=== PATIENT | female | born 1965 | race Caucasian/White ===

== ENCOUNTER 2017-11-12 09:59 | Outpatient (CLI) | payer BC, SELFPAY ==
--- NOTE | 2017-11-12 10:28 | DI.RAD_ITS ---
SYMPTOM/DIAGNOSIS: RT HEEL PAIN, M79.671 RIGHT HEEL: Two views. There is a small spur at the plantar surface of the calcaneus. The bone is intact and normally mineralized. The soft tissues are unremarkable. IMPRESSION: Small calcaneal spur.
== END 2017-11-12 10:19 ==
PROVIDERS: PCP Internal Medicine; Visit Provider Internal Medicine
DX: M77.31 Calcaneal spur, right foot (principal); M79.671 Pain in right foot
CPT/HCPCS: 73650

== ENCOUNTER 2019-02-08 22:40 | Outpatient (REF) | payer BC, SELFPAY ==
[2019-02-10 10:59] LABS: Syphilis Serology (RPR) Negative (Negative)
[2019-02-10 15:08] LABS: Chlamydia Result Negative (Negative)
[2019-02-10 15:31] LABS: GC Result Negative (Negative)
[2019-02-11 15:04] LABS: HIV-1/2 Ag & Ab Screen Negative (Negative)
== END 2019-02-08 23:00 ==
LOC: NCHCN 22:40
PROVIDERS: PCP Internal Medicine; Visit Provider Specialist/Technologist Athletic Trainer
DX: Z11.3 Encounter for screening for infections with a predominantly sexual mode of transmission (principal); Z11.4 Encounter for screening for human immunodeficiency virus [HIV]
CPT/HCPCS: 87389; 87491; 87591; 86592

== ENCOUNTER 2019-07-09 10:22 | Outpatient (REF) | payer BC, SELFPAY ==
[2019-07-09 21:15] LABS: Abs Immature Grans 0.02 k/cumm (0.0-0.09); Absolute Basophil Count 0.03 k/cumm (0.0-0.2); Absolute Eosinophil Count 0.12 k/cumm (0.0-0.7); Absolute Lymphocyte Count 1.99 k/cumm (1.2-3.4); Absolute Monocyte Count 0.41 k/cumm (0.11-0.7); Absolute Neutrophil Count 3.32 k/cumm (1.2-6.7); Basophils % 0.5; HCT 39.3 % (36.0-46.0); Immature Grans % 0.3 %; Lymphocytes % 33.8; Mean Corp. HGB Concentration 33.1 g/dL (32.0-36.0); Mean Corpuscular Hemoglobin 30.1 pg (27.0-33.0); Mean Platelet Volume 9.6 fL (8.0-11.0); Neutrophils % 56.4; Platelet Count 269 x1000/uL (130-400); RBC 4.32 m/cumm (4.00-5.20); White Blood Cell Count 5.89 k/cumm (4.4-10.8)
[2019-07-09 21:44] LABS: Iron 61 ug/dL (50-170); Total Iron Binding Capacity 391 ug/dL (250-450); Transferrin Sat 16 % (15-50)
[2019-07-09 22:11] LABS: ALT 27 U/L (14-59); AST 27 U/L (15-37); Albumin 3.5 g/dL (3.4-5.0); Alkaline Phosphatase 105 U/L (46-116); Anion Gap 8.6 mmol/L (3-11); BUN 17 mg/dL (7-18); Bilirubin, Total 0.3 mg/dL (0.2-1.0); CO2 30.4 mmol/L (21.0-32.0); CREATININE 1.04 mg/dL (0.55-1.02); Calcium 8.9 mg/dL (8.5-10.1); Chloride 99 mmol/L (98-107); Estimated GFR 55.43 (mL/min/1.73m2); Ferritin 55 ng/mL (8-252); Glucose 96 mg/dL (74-106); Potassium 4.1 mmol/L (3.5-5.1); Sodium 138 mmol/L (136-145); Total Protein 7.6 g/dL (6.4-8.2); Vitamin B12 1312 pg/mL (193-986)
[2019-07-09 22:12] LABS: Folate > 20.0 ng/mL (8.6-20.0)
[2019-07-12 09:59] LABS: Parathyroid Hormone,Intact 75 pg/mL (19-88)
== END 2019-07-09 10:42 ==
LOC: NCHCN 10:22
PROVIDERS: PCP Internal Medicine; Visit Provider Family Medicine
DX: R10.9 Unspecified abdominal pain (principal); E83.10 Disorder of iron metabolism, unspecified; R73.03 Prediabetes
CPT/HCPCS: 80053; 82607; 82728; 82746; 83540; 83550; 83970; 84425; 85025

== ENCOUNTER 2019-12-27 16:03 | Outpatient (REF) | payer BC, SELFPAY ==
--- NOTE | 2019-12-27 14:45 | PAPFT_PTH ---
PATIENT: Ford Portillo LOC: [facility] U#:[id number] AGE/SX: 54/F ROOM: RE12/27/[address]: Mohini Sue : 1965 BED: DIS: 12/27/2019 SPEC #: [id number] RECD: 12/28/19 13:00 STATUS: JEFFREY RELeah #: [id number] LOU: 12/27/19 14:[address]: Mohini Sue DEPT: [facility] Cytology RECD BY: Lorena Hinojosa ENTERED: 12/28/19 13:00 SP TYPE: PAPFT OTHR DR: Estrada Strauss Tissues: 1 - CX/ENDOCX FOR PAP SMEARS Procedures: PAP THIN PREP/UVM Screening HPV DNA PROBE Comments: [id number] ([facility])
== END 2019-12-27 16:23 ==
LOC: NCHCN 16:03
PROVIDERS: PCP Internal Medicine; Visit Provider Family Medicine
DX: Z00.00 Encounter for general adult medical examination without abnormal findings (principal); Z12.4 Encounter for screening for malignant neoplasm of cervix; Z01.419 Encounter for gynecological examination (general) (routine) without abnormal findings
CPT/HCPCS: 88142; 87624

== ENCOUNTER 2020-01-21 18:29 | Outpatient (REF) | payer BC, SELFPAY ==
[2020-01-25 03:12] LABS: Patient Race White; SARS-CoV-2 RNA Detected (Undetected); SARS-CoV-2 Specimen Source Nasal
== END 2020-01-21 18:49 ==
LOC: NCHCN 18:29
PROVIDERS: PCP Internal Medicine; Visit Provider Family Medicine
DX: Z20.828 Contact with and (suspected) exposure to other viral communicable diseases (principal)
CPT/HCPCS: U0003

== ENCOUNTER 2020-02-07 21:33 | Outpatient (REF) | payer BC, SELFPAY ==
[2020-02-12 01:51] LABS: COVID-19 RT-PCR Result INCONCLUSIVE (Negative)
== END 2020-02-07 21:53 ==
LOC: NCHCN 21:33
PROVIDERS: PCP Internal Medicine; Visit Provider Family Medicine
DX: U07.1 COVID-19 (principal)
CPT/HCPCS: U0003

== ENCOUNTER 2020-03-14 01:21 | Outpatient (CLI) | payer BC, SELFPAY ==
--- NOTE | 2020-03-14 | DI.MAMMO_ITS ---
EXAM: MAMMO SCREENING CLINICAL HISTORY: SCREENING, Z12.31 TECHNIQUE: Mammograms were interpreted according to the usual protocol including computer analysis w [employer] CAD system, tomosynthesis and C-view imaging. COMPARISON: 2010 and 2017 FINDINGS: The breasts are composed of mainly fatty density , Breast Density category A. No suspicious masses or suspicious microcalcifications are seen. No skin thickening or abnormal axillary lymph nodes are seen. There has been no significant change from prior exams. IMPRESSION: BI-RADS Category 1, Negative mammogram Yearly screening mammography is recommended. Breast Density - Category A, fatty density. A negative radiographic report should not delay biopsy if a dominant or clinically suspicious mass is present. Up to ten percent of cancers are not identified on mammography. A negative report may reinforce clinical impression. Adenosis and dense breasts may obscure an underlying neoplasm. False positive reports average 6 to 10%. Patient will receive a letter notifying them of these results.
== END 2020-03-14 01:41 ==
PROVIDERS: PCP Internal Medicine; Visit Provider Family Medicine
DX: Z12.31 Encounter for screening mammogram for malignant neoplasm of breast (principal)
CPT/HCPCS: 77063; 77067

== ENCOUNTER 2020-05-26 04:18 | Outpatient (CLI) | payer BC, SELFPAY ==
--- NOTE | 2020-05-26 | DI.RAD_ITS ---
EXAM: XR HIP PELVIS ADULT BL CLINICAL HISTORY: BILAT HIP PAIN, LT MORE THAN RT, M25.552,M25.551 TECHNIQUE: COMPARISON: No exams were available for comparison FINDINGS: Three views were obtained. There are multiple vascular clips overlying the pelvis. Cartilaginous daniel int spaces of both hips are well maintained. No significant bony abnormality seen. SI joints appear within normal limits. IMPRESSION: Negative examination both hips. RADIATION DOSE DELIVERED: Total DLP
== END 2020-05-26 04:38 ==
PROVIDERS: PCP Internal Medicine; Visit Provider Chiropractor
DX: M25.551 Pain in right hip (principal); M25.552 Pain in left hip
CPT/HCPCS: 73521

== ENCOUNTER 2020-07-17 15:23 | Outpatient (REF) | payer BC, SELFPAY | END 2020-07-17 15:24 | disposition home or self-care (01) | LOC: NCHCN 15:23 | PROVIDERS: PCP Internal Medicine; Visit Provider Family Medicine | DX: R30.0 Dysuria (principal) | CPT/HCPCS: 87086 ==

== ENCOUNTER 2020-08-15 18:51 | Outpatient (REF) | payer BC, SELFPAY | END 2020-08-15 18:52 | disposition home or self-care (01) | LOC: NCHCN 18:51 | PROVIDERS: PCP Internal Medicine; Visit Provider Family Medicine | DX: R30.0 Dysuria (principal) | CPT/HCPCS: 87086 ==

== ENCOUNTER 2020-09-03 22:56 | Emergency (ER) | payer BC, SELFPAY ==
[2020-09-03 23:04] VITALS: BP 138/101; PULSE 89; RESP 16; TEMP 36.5; O2SAT 97
--- NOTE | 2020-09-03 23:16 | ED.GENADUL_ITS ---
Discharge Plan Disposition Patient Disposition: HOME Condition: Stable Discharge Details Clinical Impression: Injury of conjunctiva and corneal abrasion of right eye w/o FB Primary Care Provider: Estrada Strauss ED Provider: Caitie Jordan Home Meds and New Rx's Prescriptions: No Action doxycycline monohydrate 100 MG tablet 100 mg PO BID Qty: 22 RF: 0 acetaminophen [Mapap Extra Strength] 500 MG tablet 500 mg PO DAILY RF: 0 diphenhydramine HCl 25 MG capsule 50 mg PO Q4H PRN PRNRF: 0 ranitidine HCl [Zantac Maximum Strength] 150 MG tablet 150 mg PO BID 7 Days RF: 0 Discharge Instructions Instructions: Corneal Abrasion (ED) Additional Instructions: You do at this time there is no contact lens retained or visualized in your eye. You do have a corneal abrasion noted to the right outer part of your eye. please use erythromycin eye ointment to to 3 times daily. Try not to scratch her eye. Wear glasses until cleared by your eye doctor. Call [facility] to schedule follow-up appointment within the next week for further evaluation. Follow up with primary care provider in 3-5 days. Return to ED sooner if any worsening or concerns. Increase oral fluids. Referrals: Estrada Strauss MD [Primary Care Provider] - Discharge Data Discharge Date/Time-TO BE ENTERED AT DEPARTURE: 09/04/20 00:10 Medical Decision Making 55-year-old female presents to the ER with chief complaint of right eye irritation and possible contact retained. She reports that yesterday she thought she got her contacts out but did not see the right one on her finger. She shortly thereafter began with increased irritation to her outer right eye and erythema. Concern for abrasion or retained contact. Denies any problems with vision currently. Has a history of iron deficiency anemia, Henoch Schoenlein purpura. Hart lamp exam performed for seen, uptake of dye noted to the right outer corner of conjunctive a, conjunctive is injected to the right corner, no other abnormalities noted. Eye was rinsed with sterile saline eye spray. No visualized contact lens or foreign body. Patient was given erythromycin ophthalmic ointment here in department and sent home with instruction she was in place at high 2-3 times a day. Instructed to follow-up with [facility] eye care which patient normally gets her eye care. Instructed to wear glasses until cleared by [facility]. Discussed home care and strict return instructions, verbalized understanding. This text was generated using [employer] dictation system, please disregard any oddities of phrase or misspellings. HPI General Mode of arrival: ambulatory . Date/Time Provider Initiated Documentation: 09/03/20 22:57 . Limitations to Documentation: no limitations . Information obtained by: patient . HPI Narrative: 55-year-old female presents to the ER with chief complaint of right eye irritation and possible contact retained. She reports that yesterday she thought she got her contacts out but did not see the right one on her finger. She shortly thereafter began with increased irritation to her outer right eye and erythema. Concern for abrasion or retained contact. Denies any problems with vision currently. Has a history of iron deficiency anemia, Henoch Schoenlein purpura. Related Data Home Medications Medication Instructions Recorded Confirmed acetaminophen [Mapap Extra 500 mg PO DAILY 09/15/16 09/29/16 Strength] diphenhydramine HCl 50 mg PO Q4H PRN PRN 09/15/16 09/29/16 ranitidine HCl [Zantac Maximum 150 mg PO BID 7 Days tablet 09/15/16 09/29/16 Strength] doxycycline monohydrate 100 mg PO BID #22 cap 10/01/16 Previous Rx's Medication Instructions Recorded ranitidine HCl [Zantac Maximum 150 mg PO BID 7 Days tablet 09/15/16 Strength] doxycycline monohydrate 100 mg PO BID #22 cap 10/01/16 Allergies Allergy/AdvReac Type Severity Reaction Status Date / Time No Known Allergies Allergy Unverified 09/29/16 11:10 General Stated Complaint: EyeProblem JOEY: 4 Review of Systems All systems reviewed & are unremarkable except as noted in HPI and below Eyes Eyes: Reports system reviewed and no additional complaints, except as documented, Denies diplopia, Denies eye discharge, Reports irritation (Right outer corner), Denies loss of vision, Reports eye pain and Reports requires corrective lenses (Possible retained contact lens) Neurologic Neurologic: Denies loss of vision PFSH Social History Smoking/Tobacco Use Status: Never Smoking risk assessment performed?: Yes Alcohol Intake: never Drug use: Never Substance use type: does not use Do you feel safe at home: Yes Do you feel safe in your relationship?: Yes Exam Eyes General: appearance normal, both eyes and all related structures Eyelids: eyelids normal Conjunctivae: conjunctival abnormality right conjunctival injection localized (Right Corner) Cornea: corneas abnormal on the right fluorescein used and abrasion at the following clock position (9 o clock); no contact lens present (None visualized), without dendrites present and with no foreign body noted and fluorescein used Pupils: PERRL EOM: EOM intact bilaterally Direct ophthalmoscopy: normal light reflex Eyes/upper lids images: 1. Corneal abrasion, no contact visualized Course Vital Signs Vital signs: Vital Signs Temperature 36.5 C 09/03/20 23:04 Pulse 89 09/03/20 23:04 Respiratory Rate 16 09/03/20 23:04 Blood Pressure 138/101 H 09/03/20 23:04 Pulse Oximetry 97 09/03/20 23:04 Temperature 36.5 C 09/03/20 23:04 Temperature Source Skin 09/03/20 23:04 Pulse 89 09/03/20 23:04 Respiratory Rate 16 09/03/20 23:04 Respiratory Effort 09/03/20 23:10 Blood Pressure 138/101 H 09/03/20 23:04 Blood Pressure Position Sitting 09/03/20 23:04 Pulse Oximetry 97 09/03/20 23:04 Oxygen Delivery Method Room Air 09/03/20 23:04 Oxygen Flow Rate 0 09/03/20 23:04 Pain Level 6 09/03/20 23:04
[2020-09-03] MEDS: Balanced Salt Solution 15 ML BTL OP (23:36)
[2020-09-03] MEDS: Fluorescein STRIPS 100/BOX 1 MG OP (23:36)
[2020-09-03] MEDS: Tetracaine 0.5% 4 ML BTL OP (23:36)
[2020-09-04] MEDS: Erythromycin Ophth Oint 3.5 GM TUBE OP (00:09)
== END 2020-09-04 00:10 | disposition home or self-care (01) ==
PROVIDERS: Emergency Provider Registered Nurse Emergency; PCP Internal Medicine
DX: H18.821 Corneal disorder due to contact lens, right eye (principal); S05.01XA Injury of conjunctiva and corneal abrasion without foreign body, right eye, initial encounter; X58.XXXA Exposure to other specified factors, initial encounter
CPT/HCPCS: 99283

== ENCOUNTER 2020-10-05 14:51 | Outpatient (REF) | payer BC, SELFPAY | END 2020-10-05 14:52 | disposition home or self-care (01) | LOC: NCHCN 14:51 | PROVIDERS: PCP Internal Medicine; Visit Provider Family Medicine | DX: R30.0 Dysuria (principal) | CPT/HCPCS: 87086 ==

== ENCOUNTER 2020-10-19 10:15 | Outpatient (REF) | payer BC, SELFPAY | END 2020-10-19 10:16 | disposition home or self-care (01) | LOC: NCHCN 10:15 | PROVIDERS: PCP Internal Medicine; Visit Provider Family Medicine | DX: N39.0 Urinary tract infection, site not specified (principal) | CPT/HCPCS: 87086 ==

== ENCOUNTER 2022-06-10 10:59 | Outpatient (CLI) | payer BC, SELFPAY ==
--- NOTE | 2022-06-10 | DI.RAD_ITS ---
Exam(s) XR KNEE RT 3V AP,LAT,JOHNNA EXAM: XR KNEE RT 3V AP,LAT,JOHNNA CLINICAL HISTORY: SEVERE PAIN ? SRESS FX M25.561 M25.562 M25.572. TECHNIQUE: 2D digital imaging was performed of the right knee. Four views obtained. Merchant, AP and lateral views were obtained. COMPARISON: None. FINDINGS: BONES: No acute fracture is present. No bony destructive lesion is seen. JOINTS: The knee is normally aligned. No joint effusion is seen. There is spurring of the posterior p atella. SOFT TISSUE: Normal. IMPRESSION: Mild degenerative changes of the right knee. DATA REPOSITORY: RADIATION DOSE DELIVERED:
--- NOTE | 2022-06-10 | DI.RAD_ITS ---
Exam(s) XR FOOT LT COMPLETE EXAM: XR FOOT LT COMPLETE CLINICAL HISTORY: SEVERE PAIN ? SRESS FX M25.561 M25.562 M25.572. TECHNIQUE: 2D digital imaging was performed of the left foot. Three images were obtained. AP, obli que and lateral views were obtained. COMPARISON: No exams were available for comparison FINDINGS: BONES: No acute fracture is present. No bony destructive lesion is seen. JOINTS: No dislocation present. There are marked degenerative changes of the 1st MTP joint characteri zed by joint space narrowing and bony hypertrophy. SOFT TISSUE: Soft tissue swelling of the foot. IMPRESSION: Marked degenerative changes seen at the 1st MTP joint. DATA REPOSITORY: RADIATION DOSE DELIVERED:
--- OUTSIDE RECORDS SUMMARY | 2022-06-10 11:03 | XMS_ITS | Continuity of Care Document ---
Author Name Unknown Organization [facility] Address [address] [place] [id number] Care Team Providers Care President Financial Institution Name Role Phone MARTI ANDRES Primary Care Physician Encounter [facility] NBR [id number] Date(s): 12/10/21 - 12/10/21 [facility] [address] [place] [address]- Encounter Diagnosis Encounter for screening colonoscopy(Discharge Diagnosis) - 12/10/21 Discharge Disposition: Home-No Follow Up Attending Physician: Sukumar Davis MD Admitting Physician: Sukumar Davis MD Allergies, Adverse Reactions, Alerts No Known Allergies Functional Status 12/10/21 Recent Travel History No recent travel Other exposure to Infectious Disease Non e Medications ferrous sulfate (as elemental iron) 45 mg oral tablet, extended release 45 mg = 1 tab, Oral, Daily, # 30 tab, 0 Refill(s) Start Date: 12/05/21 Status: Ordered multivitamin adult, oral tablet 1 tab, Oral, Daily, # 30 tab, 0 Refill(s) Start Date: 12/05/21 Status: Ordered Tylenol 8 Hour 650 mg oral tablet, extended release 1,300 mg = 2 tab, Oral, every 8 hr, PRN as needed for fever, # 24 tab, 0 Refill(s) Start Date: 12/05/21 Status: Ordered Tylenol Extra Strength 500 mg oral tablet 500 mg = 1 tab, Oral, every 4 hr, PRN as needed for pain, # 100 tab, 0 Refill(s) Start Date: 12/05/21 Status: Ordered Problem List Condition Confirmation Course Effective Dates Status H ealt Status Informant Arthritis Confirmed Active Back pain Confirmed Active Cellulitis Confirmed Active COVID-19 1 Confirmed 01/02/20 Active Disorder of iron metabolism Confirmed Active Intestinal malabsorption Confirmed Active Loose stools Confirmed Active Nausea and vomiting 2 Confirmed Active MARILYN - Obstructive sleep apnea Confirmed Active Over weight Confirmed Active Sleep apnea 3 Confirmed Active 1mild resp symptoms 2post op 3wears cpap Procedures Procedure Date Related Diagnosis Body Site Status Colonoscopy Biopsy 1 12/10/21 Comp leted Bypass gastroenterostomy Completed Removal of gallbladder Co mpleted Tennis elbow Completed 1auto-populated from documented surgical case Vital Signs Most recent to oldest [Reference Range]: 1 2 3 Temperature Temporal Artery [36-38 Deg C] 36.2 Deg C (12/10/21 12:30 PM) 36.2 Deg C (12/10/21 12:00 PM) 36 Deg C (12/10/21 11:21 AM) Temperature Temporal Artery (DegF) [97.3-100 Deg F] 97.16 Deg F *LOW* (12/10/21 12:30 PM) Peripheral Pulse Rate [60-100 bpm] 63 bpm (12/10/21 12:30 PM) 63 bpm (12/10/21 12:26 PM) 69 bpm (12/10/21 11:58 AM) Respiratory Rate [12-24 br/min] 18 br/min (12/10/21 12:00 PM) 18 br/min (12/10/21 11:21 AM) Blood Pressure [90-140/60-90 mmHg] 163/86mmHg *HI* (12/10/21 12:26 PM) 125/66mmHg (12/10/21 12:00 PM) 125/66mmHg (12/10/21 11:58 AM) Mean Arterial Pressure, Cuff [65-140 mmHg] 112 mmHg (12/10/21 12:26 PM) 86 mmHg (12/10/21 11:58 AM) 105 mmHg (12/10/21 11:35 AM) Mean Arterial Pressure Cuff 106 mmHg (12/10/21 12:26 PM) 80 mmHg (12/10/21 11:58 AM) 104 mmHg (12/10/21 11:35 AM) Weight 132.000 kg (12/05/21 3:33 PM) Weight Dosing 132.000 kg (12/05/21 3:33 PM) Height 168.000 cm (12/05/21 3:33 PM) Height/Length Dosing 168.000 cm (12/05/21 3:33 PM) Social History Social History Type Response Tobacco Never tobacco user T obacco Use:. Sex Hospital Discharge Instructions Patient Education 12/10/2021 11:04:39 Colorectal Cancer Screening Colorectal Cancer Screening Colorectal cancer screening is a group of tests that are used to check for colorectal cancer beforesymptoms develop. Colorectal refers to the colon and rectum. The colon and rectum are located at the end of the digestive tract and carry stool (feces) out of the body. Who should have screening? All adults who are 45???75 years old should have screening. Your health care provider may recommendscreening before age 45. You will have tests every 1???10 years, depending on your results and the type of screening test. Screening recommendations for adults who are 76???85 years old vary depending on a person's health. People older than age 85 should no longer get colorectal cancer screening. You may have screening tests starting before age 45, or more often than other people, if you have any of these risk factors: ??? A personal or family history of colorectal cancer or abnormal growths known as polyps in your colon. ??? Inflammatory bowel disease, such as ulcerative colitis or Crohn's disease. ??? A history of having radiation treatment to the abdomen or the area between the hip bones (pelvic area) for cancer. ??? A type of genetic syndrome that is passed from parent to child (hereditary), such as: ??? East syndrome. ??? Familial adenomatous polyposis. ??? Turcot syndrome. ??? Peutz???Jeghers syndrome. ??? MUTYH-associated polyposis (MAP). ??? A personal history of diabetes. Types of tests There are several types of colorectal screening tests. You may have one or more of the following: ??? Guaiac-based fecal occult blood testing. For this test, a stool sample is checked for hidden (occult) blood, which could be a sign of colorectal cancer. ??? Fecal immunochemical test (FIT). For this test, a stool sample is checked for blood, which could be a sign of colorectal cancer. ??? Stool DNA test. For this test, a stool sample is checked for blood and changes in DNA that could lead to colorectal cancer. ??? Sigmoidoscopy. During this test, a thin, flexible tube with a camera on the end, called a sigmoidoscope, is used to examine the rectum and the lower colon. ??? Colonoscopy. During this test, a long, flexible tube with a camera on the end, called a colonoscope, is used to examine the entire colon and rectum. Also, sometimes a tissue sample is taken to belooked at under a microscope (biopsy) or small polyps are removed during this test. ??? Virtual colonoscopy. Instead of a colonoscope, this type of colonoscopy uses a CT scan to take pictures of the colon and rectum. A CT scan is a type of X-ray that is made using computers. What are the benefits of screening? Screening reduces your risk for colorectal cancer and can help identify cancer at an early stage, when the cancer can be removed or treated more easily. It is common for polyps to form in the lining of the colon, especially as you age. These polyps may be cancerous or become cancerous over time. Screening can identify these polyps. What are the risks of screening? Generally, these are safe tests. However, problems may occur, including: ??? The need for more tests to confirm results from a stool sample test. Stool sample tests have fewer risks than other types of screening tests. ??? Being exposed to low levels of radiation, if you had a test involving X- rays. This may slightlyincrease your cancer risk. The benefit of detecting cancer outweighs the slight increase in risk. ??? Bleeding, damage to the intestine, or infection caused by a sigmoidoscopy or colonoscopy. ??? A reaction to medicines given during a sigmoidoscopy or colonoscopy. Talk with your health care provider to understand your risk for colorectal cancer and to make a screening plan that is right for you. Questions to ask your health care provider ??? When should I start colorectal cancer screening? What is my risk for colorectal cancer? How often do I need screening? Which screening tests do I need? How do I get my test results? What do my results mean? Where to find more information Learn more about colorectal cancer screening from: ??? The [place] [employer]: cancer.org ??? National Cancer [place]: cancer.gov Summary ??? Colorectal cancer screening is a group of tests used to check for colorectal cancer before symptoms develop. ??? All adults who are 45???75 years old should have screening. Your health care provider may recommend screening before age 45. ??? You may have screening tests starting before age 45, or more often than other people, if you have certain risk factors. ??? Screening reduces your risk for colorectal cancer and can help identify cancer at an early stage, when the cancer can be removed or treated more easily. ??? Talk with your health care provider to understand your risk for colorectal cancer and to make ascreening plan that is right for you. This information is not intended to replace advice given to you by your health care provider. Make sure you discuss any questions you have with your health care provider. Document Revised: 06/07/2020 Document Reviewed: 06/07/2020 Elsevier Patient Education ?? 2021 [employer] Follow Up Care 11/30/2021 15:52:33 With:Follow up with primary care provider Address:Unknown When:1 month Patient Care team information Personnel Name: DMITRYMARTI DEVRIES Address: Address: [facility] [address] [place], [place] [address]
--- OUTSIDE RECORDS SUMMARY | 2022-06-10 11:03 | XMS_ITS | Continuity of Care Document ---
Author Name Unknown Organization [facility] Address [address] [place] [address] Care Team Providers Care Public Health Administrator Name Role Phone MARTI ANDRES Primary Care Physician [phone] Encounter [facility] NBR [id number] Date(s): 12/05/21 - 12/05/21 [facility] [address] [address] Encounter Diagnosis Plantar fasciitis of left foot(Discharge Diagnosis) - 12/05/21 Discharge Disposition: Home or Self Care Attending Physician: Lili Kenyon APRN, Referring Physician: MARTI ANDRES Allergies, Adverse Reactions, Alerts No Known Allergies Assessment and Plan Future Appointments Medications ferrous sulfate (as elemental iron) 45 [...] Condition Confirmation Course Effective Dates Status H ealth Status Informant Arthritis Confirmed Active Back pain [...] Procedure Date Related Diagnosis Body Site Status Bypass gastroenterostomy Completed Removal of gallbladder Co mpleted Tennis elbow Completed Results Radiology Reports * Exam Date Time Procedure Performing Provider Status 12/05/21 11:07 AM XR Foot Complete 3+ Views Left LukasNedra bhatt Peyton; Jona (Verified) Notes: (XR Foot Complete 3+ Views Left) Reason For Exam: LEFT FOOT PAIN XR Foot Complete 3+ Views Left EXAM DESCRIPTION: XR Foot Complete 3+ Views Left 12/05/2021 INDICATION: LEFT FOOT PAIN COMPARISON: None available IMPRESSION: No acute fracture or dislocation First MTP joint osteoarthritic changes with joint space narrowing and osteophyte formation. Scattered mild IP joint space narrowing consistent with arthritic changes Mild plantar calcaneal spur. No regional radiopaque soft tissue foreign body. JOB #: [id number] Final Signed by: Angelo Tomlinson MD Signed (Electronic Signature): 12/05/2021 11:51 am Vital Signs Most recent to oldest [Reference Range]: 1 Peripheral Pulse Rate [60-100 bpm] 78 bp m (12/05/21 10:54 AM) Blood Pressure [90-140/60-90 mmHg] 124/7 8mmHg (12/05/21 10:54 AM) Weight 131.54 kg (12/05/21 10:54 AM) Weight Measured (lbs) 289.996 lb (12/05/21 10:54 AM) Height 167.64 cm (12/05/21 10:54 AM) Height/Length Measured (inches) 66 inch (12/05/21 10:54 AM) BSA Measured 2.47 m2 (12/05/21 10:54 AM) Body Mass Index 46.81 kg/m2 (12/05/21 10:54 AM) Social History Social History Type Response Tobacco Never tobacco user T obacco Use:. Sex Hospital Discharge Instructions Follow Up Care 11/27/2021 19:47:55 With:Return to this practice Address: When: only if needed XR Foot - left GE 3 Views * Angelo Tomlinson MD: VERIFY, VERIFY Event Display: Report EXAM DESCRIPTION: XR Foot Complete 3+ Views Left 12/05/2021 INDICATION: LEFT FOOT PAIN COMPARISON: None available IMPRESSION: No acute fracture or dislocation First MTP joint osteoarthritic changes with joint space narrowing and osteophyte formation. Scattered mild IP joint space narrowing consistent with arthritic changes Mild plantar calcaneal spur. No regional radiopaque soft tissue foreign body. JOB #: [id number] Final Signed by: Angelo Tomlinson MD Signed (Electronic Signature): 12/05/2021 11:51 am Patient Care team information Personnel Name: MARTI ANDRES Address: Address: [facility] [address] [place], [place] [address]
--- OUTSIDE RECORDS SUMMARY | 2022-06-10 11:03 | XMS_ITS ---
Author Name Stefano Templeton Address [address], [place] [id number] Organization [facility] Address [address], [place] [id number] Care Team Providers Care Rubber Stamp Assembler Name Role Phone Stefano Templeton Unavailable [phone] PROBLEMS Type Condition ICD9-CM Code [id number] Code Onset Dates Condition Status SNOMED Code Problem Crackling sound in right ear H93.8X1 Active [id number] ALLERGIES No Known Allergies ENCOUNTERS Encounter Location Date Diagnosis Gastroenterology [address] [facility] [address] [place], [place] [id number] Oct, [facility] [address] [place], [place] [id number] Jan, Crackling sound in right ear H93.8X1 [facility] [address] [place], [place] [id number] Jan, IMMUNIZATIONS No Known Immunizations SOCIAL HISTORY Never Assessed REASON FOR REFERRAL FUNCTIONAL STATUS PLAN OF CARE Activity Details VITAL SIGNS Height 65.5 in 2016-02-13 Height 65.5 in 2016-02-13 Weight 245 lbs 2016-02-13 Heart Rate 68 /min 2016-02-13 Respiratory Rate 16 /min 2016-02-13 BMI 40.15 kg/m2 2016-02-13 Blood pressure systolic 112 mm Hg Blood pressure diastolic 65 mm Hg 2016-02 MEDICATIONS Medication Instructions Dosage Frequency Start Date End Date Duration Status Vitamin B-12 2500 MCG Active Multivitamins - Active Calcium 600 MG Orally Twice a day 1 tablet with meals 12h Active CPAP As directed Active Ferrous Sulfate 325 (65 Fe) MG Orally Once a day 1 tablet 24h Active Vitamin D 1000 UNIT Orally Once a day 1 tablet 24h Active PROCEDURES No Known procedures RESULTS No Results REASON FOR VISIT [facility] [place], Mail Prep , right ear crackling and popping, [facility] Update Insurance Providers Health Insurance Type Health Plan Insurance Address Health Plan Insurance Phone Health Plan Insurance Name Health Plan Coverage Dates Member ID Patient Relationship to Subscriber Patient Address Patient Phone Patient Name Patient Date of Subscriber ID Subscriber Name Subscriber Date of Group No [place] [address] [place] [address] [place] self Ford Portillo [id number] [place] [address] [place] [address] [place] Port[place] [id number] [facility] - DO NOT BILL (Write Off) [address] [facility] [address] [facility] - DO NOT BILL (Write Off) self Ford Portillo [id number]
--- NOTE | 2022-06-10 14:06 | DI.RAD_ITS ---
Exam(s) XR KNEE LT 3V AP,LAT,JOHNNA EXAM: XR KNEE LT 3V AP,LAT,JOHNNA CLINICAL HISTORY: SEVERE PAIN ? SRESS FX M25.561 M25.562 M25.572. TECHNIQUE: 2D digital imaging was performed of the left knee. Four images were obtained. Merchant, AP and lateral views were obtained. COMPARISON: CR XR KNEE RT 3V AP,LAT,JOHNNA from 06/10/2022 FINDINGS: BONES: No acute fracture is present. No bony destructive lesion is seen. JOINTS: The knee is normally aligned. There does appear to be a small joint effusion. There is mild spurring of the posterior patella. SOFT TISSUE: Normal. IMPRESSION: Mild osteoarthritis of the knee. DATA REPOSITORY: RADIATION DOSE DELIVERED:
== END 2022-06-10 11:19 ==
LOC: DI 11:00
PROVIDERS: PCP Internal Medicine; Visit Provider Chiropractor
DX: M25.561 Pain in right knee (principal); M25.562 Pain in left knee; M25.572 Pain in left ankle and joints of left foot; M17.12 Unilateral primary osteoarthritis, left knee; M17.11 Unilateral primary osteoarthritis, right knee
CPT/HCPCS: 73562; 73630

== ENCOUNTER 2022-06-12 14:47 | Emergency (ER) | payer BC, SELFPAY ==
[2022-06-12 14:50] VITALS: BP 133/85; PULSE 80; RESP 16; TEMP 36.8; O2SAT 98
--- NOTE | 2022-06-12 15:35 | ED.GENADUL_ITS ---
Discharge Plan Disposition Patient Disposition: Home Condition: Stable Discharge Details Clinical Impression: Contusion of left foot, Plantar fasciitis, left Primary Care Provider: Estrada Strauss ED Provider: Kamaljit Huston Home Meds and New Rx's Prescriptions: New tramadol 50 mg tablet 50 mg PO Q8H PRN (Reason: severe pain (scale score 7-10)) Qty: 15 0RF Continued acetaminophen [Mapap Extra Strength] 500 MG tablet 500 mg PO DAILY diphenhydramine HCl 25 MG capsule 50 mg PO Q4H PRN PRN multivitamin Tablet 1 tab PO DAILY calcium 500 mg Tablet 500 mg PO DAILY cholecalciferol (vitamin D3) 100 mcg (4,000 unit) Capsule 100 mcg PO ONCE Discharge Instructions Instructions: Plantar Fasciitis (ED), Foot Contusion (ED) Additional Instructions: X-ray of your left foot from 06/10/2022 was interpreted by radiology as follows: BONES: No acute fracture is present. No bony destructive lesion is seen. JOINTS: No dislocation present. There are marked degenerative changes of the 1st MTP joint characterized by joint space narrowing and bony hypertrophy. SOFT TISSUE: Soft tissue swelling of the foot.? Marked degenerative changes seen at the 1st MTP joint.? Use orthopedic boot and crutches over the next 1 week. Please take acetaminophen (tylenol) - 650mg every 6 hours by mouth as needed for pain. Use tramadol as prescribed only for severe pain. Please contact your primary care physician to arrange follow-up. Return to the ER immediately for any worsening or new concerning symptoms. Referrals: Estrada Strauss MD [Primary Care Provider] - Medical Decision Making 56yo female with history of bilateral knee pain and plantar fascitis here with acute injury of left foot that occurred 3 days ago. Patient had xray performed 2 days ago that was interpreted by radiology as negative for fracture. Suspect foot contusion and exacerbation of plantar fasciitis. Plan for short orthopedic boot and continue crutch use. 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 Will continue tylenol and provide ultram for severe pain. Usual and customary discharge instructions were reviewed with the patient. HPI General Mode of arrival: ambulatory . Date/Time Provider Initiated Documentation: 06/12/22 15:33 . Limitations to Documentation: no limitations . Information obtained by: patient . HPI Narrative: 56-year-old female with history of arthritis of her bilateral knees, bilateral plantar fasciitis over the past few months, here with chief complaint of left foot pain. Patient notes her Planter fasciitis has improved with use of crutches. She was wearing flat shoes on Friday and stepped on a rock and had immediate pain in the sole of her left foot. Pain has persisted. Pain is worse with ambulation. Related Data Home Medications Medication Instructions Recorded Confirmed acetaminophen 500 mg tablet (Mapap 500 mg PO DAILY 09/15/16 06/12/22 Extra Strength) diphenhydramine HCl 25 mg capsule 50 mg PO Q4H PRN PRN 09/15/16 06/12/22 calcium 500 mg tablet 500 mg PO DAILY 06/12/22 06/12/22 cholecalciferol (vitamin D3) 100 100 mcg PO ONCE 06/12/22 06/12/22 mcg (4,000 unit) capsule multivitamin 1 tab PO DAILY 06/12/22 06/12/22 tramadol 50 mg tablet 50 mg PO Q8H PRN severe pain 06/12/22 (scale score 7-10) #15 tabs Previous Rx's Medication Instructions Recorded tramadol 50 mg tablet 50 mg PO Q8H PRN severe pain 06/12/22 (scale score 7-10) #15 tabs Allergies Allergy/AdvReac Type Severity Reaction Status Date / Time No Known Allergies Allergy Unverified 06/12/22 14:55 General Stated Complaint: Orthopedic JOEY: 4 Review of Systems Musculoskeletal Comments: Bilateral knee pain, bilateral foot pain, see HPI regarding left foot PFSH All Active Problems Iron deficiency anemia (Acute) Petechial rash (Acute) Postoperative anemia (Acute) Leukocytosis (Acute) HSP (Henoch Schonlein purpura) (Acute) Injury of conjunctiva and corneal abrasion of right eye w/o FB (Acute) Contusion of left foot (Acute) Plantar fasciitis, left (Acute) Social History Smoking/Tobacco Use Status: Never Smoking risk assessment performed?: Yes Alcohol Intake: never Drug use: Never Substance use type: does not use Do you feel safe at home: Yes Do you feel safe in your relationship?: Yes Exam Extrem Left lower extremity: lower leg Details: normal to inspection; no tenderness, ankle Details: normal to inspection and normal ROM; no tenderness and foot Details: tenderness Location: of the plantar foot Location: proximally; not of the calcaneus, not of the mid foot and not of the base of the 5th metatarsal, toes with normal ROM, vascular exam Details: dorsalis pedis pulse present (2+) and motor-sensory exam (nl); no unusual warmth and no ecchymosis Course Vital Signs Vital signs: Vital Signs Temperature 36.8 C 06/12/22 14:50 Pulse 80 06/12/22 14:50 Respiratory Rate 16 06/12/22 14:50 Blood Pressure 133/85 06/12/22 14:50 Pulse Oximetry 98 06/12/22 14:50 Temperature 36.8 C 06/12/22 14:50 Temperature Source Temporal Artery Scan 06/12/22 14:50 Pulse 80 06/12/22 14:50 Respiratory Rate 16 06/12/22 14:50 Respiratory Effort Normal 06/12/22 14:54 Blood Pressure 133/85 06/12/22 14:50 Blood Pressure Position Sitting 06/12/22 14:50 Pulse Oximetry 98 06/12/22 14:50 Oxygen Delivery Method Room Air 06/12/22 14:50 Oxygen Flow Rate 0 06/12/22 14:50 Pain Level 8 06/12/22 14:50 PAWSS Have you Been Recently Intoxicated or Drunk Within the Last 30 days?: No Have you Ever Experienced Previous Episodes of Alcohol Withdrawal?: No Have you ever Experienced Withdrawal Seizures?: No Have you ever Experienced Delirium Tremens(DT)s?: No Have you ever undergone Alcohol Rehabilitation Treatment (i.e, inpt ot outpatient treatment programs)?: No Have you ever Experienced Blackouts?: No Have you ever Combined Alcohol with other Downers within the last 90 days?: No Have you ever Combined Alcohol with any other Substance of Abuse during the last 90 days?: No Result: 0
== END 2022-06-12 16:19 | disposition home or self-care (01) ==
PROVIDERS: Emergency Provider Student in an Organized Health Care Education/Training Program; PCP Internal Medicine
DX: S90.32XA Contusion of left foot, initial encounter (principal); M72.2 Plantar fascial fibromatosis; X58.XXXA Exposure to other specified factors, initial encounter
CPT/HCPCS: 29515; 99283; 99285

== ENCOUNTER 2022-08-07 13:20 | Outpatient (CLI) | payer BC, SELFPAY ==
--- NOTE | 2022-08-07 | DI.MRI_ITS ---
Exam(s) MR LOWER JOINT RT WO EXAM: MR LOWER JOINT RT WO CLINICAL HISTORY: RT KNEE PAIN, INTERNAL DERANGEMENT RT KNEE, M23.91. TECHNIQUE: Multiplanar multisequence MRI was performed. COMPARISON: CR XR KNEE RT 3V AP,LAT,JOHNNA from 06/10/2022 FINDINGS: BONES: There is no fracture or contusion pattern. JOINTS: There is thinning of the articular cartilage in the medial patellar facet. There is a small joint effusion. TENDONS: Extensor mechanism: Unremarkable. Medial retinaculum: Unremarkable. Lateral retinaculum: Unremarkable. Popliteus: Unremarkable. MUSCLES: Unremarkable. MENISCI: There is degenerative signal in the posterior horn of the medial meniscus. No evidence of a tear. The lateral meniscus is unremarkable. SOFT TISSUES: There is edema seen in the soft tissues anterior to the patella. There is a small cyst which appears to arise from the proximal tibial fibular joint. LIGAMENTS: Anterior Cruciate: There is a decreased size of the anterior cruciate ligament. This may represent a partial tear or chronic tear. Posterior Cruciate: Unremarkable. Medial Collateral:Mild edema around the MCL which may represent a sprain. Lateral Collateral: Unremarkable. OTHER: IMPRESSION: 1. Decreased size of the anterior cruciate ligament which may represent a partial tear or chronic tea r. 2. Mild edema around the MCL suspicious for sprain. 3. No evidence of a meniscal tear. 4. Small joint effusion. DATA REPOSITORY:
== END 2022-08-07 13:40 ==
LOC: DI 13:21
PROVIDERS: PCP Internal Medicine; Visit Provider Specialist
DX: M25.461 Effusion, right knee; M25.561 Pain in right knee
CPT/HCPCS: 73721

== ENCOUNTER 2022-11-15 14:42 | Outpatient (REF) | payer BC, SELFPAY ==
[2022-11-15 15:27] LABS: Bacteria Rare HPF (Negative); C & S Indicated? C&S Done As Ordered; Casts Negative LPF (Negative); Crystals Negative HPF (Negative); Epithelial Cells Few HPF (Negative); Mucus Negative (Negative); WBC 20-50 HPF (0-5)
== END 2022-11-15 14:43 | disposition home or self-care (01) ==
LOC: LBN 14:42
PROVIDERS: PCP Internal Medicine; Visit Provider Physician Assistant Medical
DX: R30.0 Dysuria (principal); R82.998 Other abnormal findings in urine
CPT/HCPCS: 81015; 87086

== ENCOUNTER 2024-12-28 10:44 | Outpatient (REF) | payer BC, SELFPAY | END 2024-12-28 10:45 | disposition home or self-care (01) | LOC: LBN 10:44 | PROVIDERS: PCP Registered Nurse; Visit Provider Nurse Practitioner Family | DX: N30.01 Acute cystitis with hematuria (principal) | CPT/HCPCS: 87086 ==